=== PATIENT | male | born 1960 | race Caucasian/White ===

== ENCOUNTER 2016-06-16 09:44 | Outpatient (CLI) | payer BC ==
--- NOTE | 2016-06-16 12:01 | DIAGNOSTIC IMAGING REPORT ---
PROCEDURE: CTA THORAX WITH CONTRAST INDICATION: CHEST PAIN, initial encounter TECHNIQUE: 92 ml of Isovue 370 was injected intravenously and axial images were obtained of the entire thorax with 3D sagittal and coronal MIP reconstructions. COMPARISON: None. FINDINGS: No evidence of pulmonary emboli. Lungs are clear. No adenopathy or effusion. Normal thoracic aorta without dissection or aneurysm. Coronary atherosclerosis. Sternal surgical wires. Mild cardiomegaly. No pericardial effusion. Bilateral renal lobulation. Bilateral renal cysts. Splenules are present. Mild degenerative changes of the spine. IMPRESSION: 1. No evidence of pulmonary emboli, aortic dissection or aneurysm 2. Mild cardiomegaly
== END 2016-06-16 23:00 ==
LOC: CT SRH 09:44
DX: R07.9 Chest pain, unspecified (principal); I51.7 Cardiomegaly